=== PATIENT | male | born 1960 | race Caucasian/White ===

== ENCOUNTER 2018-02-25 01:59 | Outpatient (CLI) | payer BC, SELFPAY ==
[2018-02-25 09:52] LABS: ALT 42 U/L (12-78); AST 25 U/L (15-37); Alkaline Phosphatase 65 U/L (46-116); BUN 16 mg/dL (7-18); Bilirubin, Total 0.5 mg/dL (0.2-1.0); CREATININE 0.86 mg/dL (0.70-1.30); Calcium 9.1 mg/dL (8.5-10.1); Chloride 102 mmol/L (98-107); Cholesterol 205 mg/dL (50-200); Glucose 98 mg/dL (70-100); HDL Cholesterol 34 mg/dL (40-60); LDL CHOLESTEROL 83 mg/dL (<100); Potassium 4.2 mmol/L (3.5-5.1); Sodium 139 mmol/L (136-145); Total Protein 7.4 g/dL (6.4-8.2); Triglyceride 527 mg/dL (30-150)
[2018-02-25 10:04] LABS: Hemoglobin A1C 6.7 % (4.5-6.2)
== END 2018-02-25 02:19 ==
PROVIDERS: PCP Family Medicine; Visit Provider Family Medicine
DX: E11.39 Type 2 diabetes mellitus with other diabetic ophthalmic complication (principal)
CPT/HCPCS: 36415; 80053; 80061; 83721; 82043; 82570; 83036

== ENCOUNTER 2018-09-26 04:12 | Outpatient (CLI) | payer BC, SELFPAY ==
[2018-09-26 12:10] LABS: ALT 46 U/L (12-78); AST 28 U/L (15-37); Albumin 4.2 g/dL (3.4-5.0); Alkaline Phosphatase 56 U/L (46-116); Anion Gap 12.5 mmol/L (3-11); BUN 20 mg/dL (7-18); Bilirubin, Total 0.6 mg/dL (0.2-1.0); CO2 26.5 mmol/L (21.0-32.0); CREATININE 0.95 mg/dL (0.70-1.30); Calcium 9.5 mg/dL (8.5-10.1); Chloride 99 mmol/L (98-107); Cholesterol 232 mg/dL (50-200); Glucose 156 mg/dL (70-100); HDL Cholesterol 34 mg/dL (40-60); LDL CHOLESTEROL 113 mg/dL (<100); Potassium 4.4 mmol/L (3.5-5.1); Sodium 138 mmol/L (136-145); Total Protein 7.6 g/dL (6.4-8.2); Triglyceride 406 mg/dL (30-150)
[2018-09-26 12:13] LABS: Hemoglobin A1C 6.9 % (4.5-6.2)
== END 2018-09-26 04:32 ==
PROVIDERS: PCP Family Medicine; Visit Provider Family Medicine
DX: E11.9 Type 2 diabetes mellitus without complications (principal); E78.5 Hyperlipidemia, unspecified; I10 Essential (primary) hypertension
CPT/HCPCS: 36415; 80053; 80061; 83721; 83036

== ENCOUNTER 2019-04-14 09:03 | Outpatient (CLI) | payer BC, SELFPAY ==
[2019-04-14 11:11] LABS: Hemoglobin A1C 6.9 % (4.5-6.2)
[2019-04-14 11:15] LABS: Cholesterol 221 mg/dL (<200); HDL Cholesterol 28 mg/dL (40-60); Triglyceride 548 mg/dL (<150)
[2019-04-14 11:33] LABS: LDL CHOLESTEROL 71 mg/dL (<100)
== END 2019-04-14 09:23 ==
PROVIDERS: PCP Family Medicine; Visit Provider Family Medicine
DX: E11.9 Type 2 diabetes mellitus without complications (principal); E78.5 Hyperlipidemia, unspecified
CPT/HCPCS: 36415; 80061; 83721; 83036

== ENCOUNTER 2020-02-04 04:13 | Outpatient (CLI) | payer BC, SELFPAY ==
[2020-02-04 07:56] LABS: Hemoglobin A1C 6.7 % (<5.7)
[2020-02-04 18:18] LABS: PSA, Screening 0.6 ng/mL (0.0-4.5)
== END 2020-02-04 04:33 ==
PROVIDERS: PCP Family Medicine; Visit Provider Family Medicine
DX: Z00.00 Encounter for general adult medical examination without abnormal findings (principal); E11.9 Type 2 diabetes mellitus without complications; Z12.5 Encounter for screening for malignant neoplasm of prostate
CPT/HCPCS: 36415; 84153; 83036

== ENCOUNTER 2020-04-20 11:41 | Outpatient (CLI) | payer BC, SELFPAY ==
--- NOTE | 2020-04-20 06:45 | DI.RAD_ITS ---
EXAM: XR CERVICAL SPINE COMP 4-5V CLINICAL HISTORY: fall w/ loss of conciousness/neck pain,m54.2,cervicalgia. TECHNIQUE: 2D digital imaging was performed. COMPARISON: No exams were available for comparison FINDINGS: There is moderate narrowing of the C5-6 and C6-7 disc spaces. The remaining disc spaces are normally maintained. There are endplate osteophytes at these levels. Facet degenerative changes are also pr esent which are most prominent at C2-3 and C6-7. There is bilateral neural foraminal narrowing at C5 -6 and C6-7, greater on the right side. There is no prevertebral soft tissue swelling. The airway a ppears intact. SOFT TISSUE: Normal. The lung apices are clear. IMPRESSION: Degenerative changes, greatest at C5-6 and C6-7. DATA REPOSITORY: RADIATION DOSE DELIVERED:
== END 2020-04-20 12:01 ==
PROVIDERS: PCP Family Medicine; Visit Provider Family Medicine
DX: M54.2 Cervicalgia (principal); M50.322 Other cervical disc degeneration at C5-C6 level; M50.323 Other cervical disc degeneration at C6-C7 level
CPT/HCPCS: 72050

== ENCOUNTER 2020-08-23 11:01 | Outpatient (REF) | payer BC, SELFPAY ==
[2020-08-23 13:14] LABS: ALT 37 U/L (16-63); AST 20 U/L (15-37); Albumin 3.9 g/dL (3.4-5.0); Alkaline Phosphatase 57 U/L (46-116); Anion Gap 8.8 mmol/L (3-11); BUN 16 mg/dL (7-18); Bilirubin, Total 0.6 mg/dL (0.2-1.0); CO2 28.2 mmol/L (21.0-32.0); CREATININE 0.9 mg/dL (0.70-1.30); Calcium 9.6 mg/dL (8.5-10.1); Chloride 102 mmol/L (98-107); Glucose 146 mg/dL (74-106); Potassium 4.4 mmol/L (3.5-5.1); Sodium 139 mmol/L (136-145); Total Protein 7.1 g/dL (6.4-8.2)
[2020-08-23 13:30] LABS: COMMENT (LAB VIEW ONLY) 56.23 mg/dL; Microalb ug/mg Crea 21.5 ug/mg Cr
[2020-08-23 14:17] LABS: Hemoglobin A1C 6.6 % (<5.7)
== END 2020-08-23 11:02 | disposition home or self-care (01) ==
LOC: LBN 11:01
PROVIDERS: PCP Family Medicine; Visit Provider Family Medicine
DX: Z00.00 Encounter for general adult medical examination without abnormal findings (principal); E11.9 Type 2 diabetes mellitus without complications
CPT/HCPCS: 80053; 82043; 82570; 83036

== ENCOUNTER 2020-12-22 04:45 | Outpatient (CLI) | payer BC, SELFPAY ==
[2020-12-22 07:59] LABS: Hemoglobin A1C 6.7 % (<5.7)
== END 2020-12-22 04:46 | disposition home or self-care (01) ==
LOC: LBO 04:45
PROVIDERS: PCP Family Medicine; Visit Provider Family Medicine
DX: E11.9 Type 2 diabetes mellitus without complications (principal)
CPT/HCPCS: 36415; 83036

== ENCOUNTER 2021-05-30 02:09 | Outpatient (CLI) | payer BC, SELFPAY ==
[2021-05-30 10:17] LABS: ALT 35 U/L (16-63); AST 19 U/L (15-37); Alkaline Phosphatase 63 U/L (46-116); Anion Gap 10.4 mmol/L (3-11); BUN 18 mg/dL (7-18); Bilirubin, Total 0.4 mg/dL (0.2-1.0); CO2 27.6 mmol/L (21.0-32.0); CREATININE 0.9 mg/dL (0.70-1.30); Calcium 9.3 mg/dL (8.5-10.1); Chloride 100 mmol/L (98-107); Cholesterol 230 mg/dL (<200); Glucose 155 mg/dL (74-106); HDL Cholesterol 37 mg/dL (40-60); Potassium 4.2 mmol/L (3.5-5.1); Sodium 138 mmol/L (136-145); Total Protein 7.5 g/dL (6.4-8.2); Triglyceride 428 mg/dL (<150)
[2021-05-30 10:49] LABS: LDL CHOLESTEROL 85 mg/dL (<100)
[2021-05-30 17:56] LABS: PSA, Screening 0.5 ng/mL (0.0-4.5)
== END 2021-05-30 02:10 | disposition home or self-care (01) ==
LOC: LBO 02:10
PROVIDERS: PCP Family Medicine; Visit Provider Family Medicine
DX: Z00.00 Encounter for general adult medical examination without abnormal findings (principal); Z12.5 Encounter for screening for malignant neoplasm of prostate
CPT/HCPCS: 36415; 80053; 80061; 83721; 84153

== ENCOUNTER 2021-06-09 00:19 | Outpatient (CLI) | payer BC, SELFPAY ==
--- NOTE | 2021-06-09 07:30 | DI.MRI_ITS ---
Exam(s) MR CERVICAL SPINE WO EXAM: MR CERVICAL SPINE WO CLINICAL HISTORY: hand tremor and cervical radiculopthy C5-6,G95.9,M54.12,R25.1 TECHNIQUE: Multiplanar multisequence MRI of the cervical spine was performed without intravenous con trast. COMPARISON: MR MRI - CERVICAL SPINE WO CONT from 05/27/2008 CR XR CERVICAL SPINE COMP 4-5V from 04/20/2020 FINDINGS: BONES: Vertebral body heights are maintained. Alignment is normal. Bone marrow signal intensity is wi thin normal limits. CERVICAL CORD: Craniovertebral junction is unremarkable. The cervical cord is normal size and signal intensity. SOFT TISSUES: Unremarkable. C2-3: Minimal disc bulging and small endplate osteophytes. C3-4: Minimal disc bulging and small endplate osteophytes. C4-5: Minimal disc bulging and small endplate osteophytes. C5-6: Severe loss of disc height and broad-based disc osteophytes causing effacement of the CSF spac e and narrowing of the central canal. There is bilateral neural foraminal narrowing. C6-7: Moderate loss of disc height and broad-based disc osteophytes. Effacement of the CSF base and n arrowing of the AP dimension of the central canal. Bilateral neural foraminal narrowing. C7-T1: No disc herniation or bulge is identified. IMPRESSION: Degenerative disc changes at C5-6 and C6-7 causing bilateral neural foraminal narrowing as well as ce ntral canal stenosis. No focal disc herniation is seen at any level. DATA REPOSITORY:
== END 2021-06-09 00:39 ==
PROVIDERS: PCP Family Medicine; Visit Provider Family Medicine
DX: M54.12 Radiculopathy, cervical region (principal); R25.1 Tremor, unspecified; M50.322 Other cervical disc degeneration at C5-C6 level; M50.323 Other cervical disc degeneration at C6-C7 level
CPT/HCPCS: 72141

== ENCOUNTER 2021-09-01 08:48 | Outpatient (CLI) | payer BC, SELFPAY ==
--- NOTE | 2021-09-01 08:45 | RT.EKG_ITS ---
APPROVED REPORT Exam: Resting ECG Reason for Exam: Pre-op exam Patient Location: O HR:70 bpm ECG Measurements Heart Rate 70 AXIS NY 212 P 65 QRSd 85 QRS 34 QT 380 T 42 QTc 400 Conclusion Sinus rhythm...normal P axis, V-rate 60- 99 Atrial premature complexes...SV complexes w/ short R-R intvls Borderline prolonged NY interval...NY >212, V-rate 50- 90
== END 2021-09-01 08:49 | disposition home or self-care (01) ==
LOC: DI.CM 08:49
PROVIDERS: PCP Family Medicine; Visit Provider Family Medicine
DX: I25.10 Atherosclerotic heart disease of native coronary artery without angina pectoris (principal); I10 Essential (primary) hypertension; Z01.810 Encounter for preprocedural cardiovascular examination; Z01.818 Encounter for other preprocedural examination
CPT/HCPCS: 93010

== ENCOUNTER 2021-09-13 04:30 | Outpatient (CLI) | payer BC, SELFPAY ==
[2021-09-13 12:43] LABS: HCT 47.8 % (40.0-50.0); HGB 16.1 g/dL (13.5-17.5); MCH 31.1 pg (27.0-33.0); MCHC 33.7 % (32.0-36.0); MCV 92.5 fL (80-95); MPV 10.6 fL (8.0-11.0); Platelet Count 258 10^3/uL (130-400); RBC 5.17 10^6/uL (4.36-5.78); RDW 12.9 % (11.8-14.1); RDW-SD 43.8 fL; WBC 5.95 10^3/uL (4.4-10.8)
[2021-09-13 13:02] LABS: Hemoglobin A1C 6.6 % (<5.7)
[2021-09-13 13:13] LABS: ALT 43 U/L (16-63); AST 27 U/L (15-37); Albumin 4.3 g/dL (3.4-5.0); Alkaline Phosphatase 61 U/L (46-116); Anion Gap 8.1 mmol/L (3-11); BUN 15 mg/dL (7-18); Bilirubin, Total 0.6 mg/dL (0.2-1.0); CO2 26.9 mmol/L (21.0-32.0); CREATININE 0.9 mg/dL (0.70-1.30); Calcium 9.8 mg/dL (8.5-10.1); Chloride 103 mmol/L (98-107); Glucose 143 mg/dL (74-106); Potassium 5.1 mmol/L (3.5-5.1); Sodium 138 mmol/L (136-145); Total Protein 7.6 g/dL (6.4-8.2)
== END 2021-09-13 04:31 | disposition home or self-care (01) ==
LOC: LOS 04:30
PROVIDERS: Family Medicine; PCP Family Medicine; Visit Provider Family Medicine
DX: I10 Essential (primary) hypertension (principal); E11.9 Type 2 diabetes mellitus without complications; I25.10 Atherosclerotic heart disease of native coronary artery without angina pectoris
CPT/HCPCS: 36415; 80053; 85027; 83036

== ENCOUNTER → 2021-10-30 09:15 | Outpatient (CLI) | payer BC, SELFPAY ==
--- NOTE | 2021-10-30 | DI.RAD_ITS ---
Exam(s) XR CERVICAL SPINE 1V EXAM: XR CERVICAL SPINE 1V CLINICAL HISTORY: Cervical spin fusion Z98.1--Stenosis of spine M48.02. TECHNIQUE: 2D digital imaging was performed. Single lateral view. COMPARISON: CR XR CERVICAL SPINE COMP 4-5V from 04/20/2020 FINDINGS: Anterior fusion hardware is noted spanning C5 through C7. Disc spacer is are noted at these levels. The alignment normal. Remaining disc spaces are well maintained. There are facet degenerative fraga ges.. IMPRESSION: Status post lower cervical spine fusion. DATA REPOSITORY: RADIATION DOSE DELIVERED:
== END ==
PROVIDERS: PCP Family Medicine; Visit Provider Physician Assistant Surgical
DX: M48.02 Spinal stenosis, cervical region (principal); Z98.1 Arthrodesis status; M47.812 Spondylosis without myelopathy or radiculopathy, cervical region
CPT/HCPCS: 72020

== ENCOUNTER → 2021-12-28 00:20 | Outpatient (CLI) | payer BC, SELFPAY ==
--- NOTE | 2021-12-28 08:28 | DI.RAD_ITS ---
Exam(s) XR CERVICAL SPINE 1V EXAM: XR CERVICAL SPINE 1V CLINICAL HISTORY: S/P CERVICAL FUSION,Z98.1,CERVICAL STENOSIS,M48.02. TECHNIQUE: 2D digital imaging was performed. COMPARISON: CR XR CERVICAL SPINE 1V from 10/30/2021 FINDINGS: Single lateral view: Again noted is a previously described anterior fusion hardware at C5-6-7 levels with anterior fusion plate and disc spacer components at these levels. The appearance of the hardware is stable. Satisfactory position of the disc space devices remain sta ble with no migration of these components. Facet joints appear unchanged. Bridging anterior osteoph ytes are seen at C4-5 level, this being one level above the fusion, unchanged. This disc space as we ll as disc spaces above it continue to exhibit normal height. IMPRESSION: Stable satisfactory appearance. DATA REPOSITORY: RADIATION DOSE DELIVERED:
== END ==
PROVIDERS: PCP Family Medicine; Visit Provider Neurological Surgery
DX: M48.02 Spinal stenosis, cervical region (principal); Z98.1 Arthrodesis status
CPT/HCPCS: 72020

== ENCOUNTER 2022-06-05 03:04 | Outpatient (CLI) | payer BC, SELFPAY ==
[2022-06-05 13:04] LABS: COMMENT (LAB VIEW ONLY) 257.47 mg/dL
[2022-06-05 13:05] LABS: Microalb ug/mg Crea 41.8 ug/mg Cr
[2022-06-05 14:01] LABS: ALT 41 U/L (16-63); AST 33 U/L (15-37); Albumin 4.2 g/dL (3.4-5.0); Alkaline Phosphatase 56 U/L (46-116); Anion Gap 12.7 mmol/L (3-11); BUN 17 mg/dL (7-18); Bilirubin, Total 0.5 mg/dL (0.2-1.0); CO2 24.3 mmol/L (21.0-32.0); CREATININE 0.9 mg/dL (0.70-1.30); Calcium 9.4 mg/dL (8.5-10.1); Calculated LDL 104 mg/dL (<100); Chloride 102 mmol/L (98-107); Cholesterol 212 mg/dL (<200); Estimated GFR 95.97 (mL/min/1.73m2); Glucose 127 mg/dL (74-106); HDL Cholesterol 45 mg/dL (40-60); Sodium 139 mmol/L (136-145); Total Protein 7.8 g/dL (6.4-8.2); Triglyceride 319 mg/dL (<150)
[2022-06-05 18:50] LABS: PSA, Screening 0.5 ng/mL (<=4.5)
[2022-06-05 19:01] LABS: Estimated Average Glucose 134 mg/dL; Hemoglobin A1C 6.3 % (<5.7)
== END 2022-06-05 03:05 | disposition home or self-care (01) ==
LOC: LOS 03:04
PROVIDERS: PCP Family Medicine; Visit Provider Family Medicine
DX: Z00.00 Encounter for general adult medical examination without abnormal findings (principal); E11.9 Type 2 diabetes mellitus without complications
CPT/HCPCS: 36415; 80053; 80061; 84153; 82043; 82570; 83036

== ENCOUNTER 2022-12-21 02:24 | Outpatient (CLI) | payer BC, SELFPAY ==
[2022-12-21 12:52] LABS: Hemoglobin A1C 5.9 % (<5.7)
== END 2022-12-21 02:25 | disposition home or self-care (01) ==
LOC: LOS 02:24
PROVIDERS: PCP Family Medicine; Visit Provider Family Medicine
DX: E11.9 Type 2 diabetes mellitus without complications (principal)
CPT/HCPCS: 36415; 83036

== ENCOUNTER 2023-05-27 09:26 | Day surgery (SDC) | payer BC, SELFPAY ==
--- NOTE | 2023-05-26 18:55 | W.PM.DSUDISC ---
Date of service: 05/27/23 Time of Service: 11:45 Discharge Plan Disposition Patient Disposition: Home Condition: Good Discharge Details Reason For Visit: screening colonoscopy Attending Provider: Deandre Powers Primary Care Provider: Catherine Siddiqi Home Meds and New Rx's Prescriptions: Continued aspirin [Aspirin Low-Strength] 81 MG tablet,chewable 81 mg PO DAILY (DME) Blood Glucose Test 1 EACH strip 1 ea Miscellaneous DAILY Qty: 100 Rx Instructions: FOR covered METER. E11.9 (DME) lancets 1 EACH misc 1 ea Miscellaneous DAILY Qty: 100 Rx Instructions: FOR dispensed METER. E11.9 nitroglycerin [Nitrostat] 0.4 mg tablet, sublingual 0.4 mg Sublingual PRN MDD 3 Qty: 25 12RF glipizide 10 mg tablet extended release 24hr 10 mg PO DAILY Qty: 90 4RF losartan [Cozaar] 100 mg tablet 100 mg PO QAM Qty: 90 3RF hydrochlorothiazide 25 mg tablet 25 mg PO QAM Qty: 90 3RF diazepam 2 mg tablet 2 mg PO TID PRN (Reason: muscle spasm) Qty: 90 1RF metoprolol succinate [Toprol XL] 200 mg tablet extended release 24 hr 200 mg PO DAILY Qty: 90 4RF lorazepam 1 mg tablet 1 mg PO 1/2 H BEFORE FLIGHT Qty: 10 0RF metformin 1,000 mg tablet 1,000 mg PO DAILY Qty: 180 3RF Discontinued bisacodyl [Dulcolax (bisacodyl)] 5 mg tablet,delayed release (DR/EC) 5 mg PO ONCE Qty: 4 0RF Rx Instructions: Take per colonoscopy instructions provided by ordering providers office polyethylene glycol 3350 17 gram/dose powder 17 g PO ONCE Qty: 238 0RF Rx Instructions: Take per colonoscopy instructions provided by ordering providers office Discharge Instructions Instructions: Colorectal Polyps (GEN) Additional Instructions: Jason, we were able to complete your colonoscopy today without any issues. I did find a total of 5 polyps. I removed these all completely without any problems. It will take a week or 2 for me to get the results of the polyp report, but, at least to the naked eye, there were no worrisome features about them. Once I have the results of the polyp test, I will be in touch with my recommendations for your next colonoscopy. 1. If tolerated, consume a soft, low fiber diet for 1-2 days. 2[address] Do not drive, drink alcohol, operate machinery, make critical decisions, or do activities that require coordination or balance for 24 hours. 3. Because air was put into your colon during the procedure, expelling air from your rectum (passing gas or farting) is normal. 4. You may not have a bowel movement for 1-3 days because of the colonoscopy prep. This is normal. 5. Go directly to the emergency room if you notice any of the following: Develop chills (warm to touch), or if you have a thermometer and your temperature is above 101 Difficulty breathing or difficultly swallowing Persistent vomiting Severe abdominal pain, other than gas cramps Severe chest pain Black, tarry stools Any bleeding ? exceeding one tablespoon 6. Call your physician if the site where your intravenous was started becomes red, swollen, painful, and warm to touch. 7. Your physician has reviewed your pre-procedure medications. Please continue to take those medications as previously ordered. You will be given specific information/education regarding any changes to your medications before leaving. Activity:: Activity as Tolerated Diet:: As Tolerated Discharge Orders Discharge Orders: Discharge Order (Routine); Ordered 05/26/23 Ordered By: Deandre Powers DS: Diagnosis Discharge Diagnosis (1) Screening for colorectal cancer: Status: Acute Asessment and Plan: Follow-up on polypectomy results
--- NOTE | 2023-05-26 18:57 | W.COLOREPORT ---
Date of service: 05/27/23 Time of Service: 11:47 Colonoscopy Report Date of procedure: 05/27/23 Pre-op diagnosis general: screening colonoscopy Post-op diagnosis procedure note: other (Colon polyps) Procedure: colonoscopy with polypectomy Surgeon: Deandre Powers Anesthesia Type: General:No Airway Estimated blood loss (mL): 10 Pathology: other (0.25 cm rectal polyps x 2, 0.25 cm polyp at 50 cm, 0.25 cm polyps at 30 cm x 2) Complications: None Disposition: same day Indications: Jason is a 62 year old man who needs his next screening colonoscopy Prep: Miralax/Dulcolax Procedure Start Time: 11:17 Procedure End Time: 11:36 Retraction Time: 12 Findings: 0.25 cm rectal polyps x 2, 0.25 cm polyp at 50 cm, 0.25 cm polyps at 30 cm x 2 Procedure Description: After the induction of monitored anesthetic care, and with the patient in left lateral decubitus position, I began by performing an external anorectal exam.? Perineum and skin were normal, as was the anal verge.? There was no evidence of external hemorrhoids.? Next, I performed a digital rectal exam.? I did not appreciate any abnormal findings.? Next, I advanced a colonoscope into the rectal vault.? I performed retroflexion.? This appeared normal.? Using insufflation, I then advanced the colonoscope beyond the rectal folds and into the sigmoid colon before advancing towards the cecum.? The scope was noted to be in the cecum by identification of the ileocecal valve and appendiceal orifice.? I then began withdrawing the colonoscope using repeated irrigation as necessary for full evaluation of the colonic mucosa. Around 50 cm from the anal verge I identified a 0.25 cm flat cold forceps polypectomy polyp. ?It appeared in character. ?I was able to remove this with a . ?I examined the site, and there was minimal bleeding. ?Once this was completed, I continued to withdraw the scope and examine the remainder of the colonic mucosa.? I found 2 flat polyps at 30 cm. Both of these were about 0.25 cm, and both were removed with cold forceps without any significant bleeding. Once the scope was withdrawn to the level of the rectum, great care was taken to examine portions of the rectal folds.? In the upper portion of the rectal vault where another two 0.25 cm flat polyps. I removed these with cold forceps as well. Finally, the scope was withdrawn and the patient was brought to the same-day surgery recovery unit as the anesthetic wore off. ?The findings and instructions were shared with the patient prior to discharge. [place] Bowel Prep [place] Bowel Prep Right Colon: 2 Left Colon: 3 Transverse Colon: 3 Total Score: 8
[2023-05-27 10:27] VITALS: BP 137/86; PULSE 82; RESP 18; TEMP 36.4; O2SAT 97
--- NOTE | 2023-05-27 10:41 | W.ANESPRE ---
General Info Date of Service Date Performed: 05/27/23 Height: 5 ft 10 in Weight: 92.6 kg Body Mass Index (BMI): 29.2 Surgical Procedure: Operation Date: 05/27/23 11:20 Proposed Procedure Side Surgeon tyler Powers MD Meds Allergies and Home Medications Allergies Allergy/AdvReac Type Severity Reaction Status Date / Time Eahzyia-GFP-XcN Reductase AdvReac Intermediate Verified 05/27/23 10:22 Inhibitor [Sgukodp-Kvj-Wdy Reductase Inhibitor] amantadine AdvReac Verified 05/27/23 10:22 Home Medication Medication Instructions Recorded aspirin 81 mg chewable tablet 81 mg PO DAILY 07/31/12 (Aspirin Low-Strength) blood sugar diagnostic (Blood #100 strips 07/30/16 Glucose Test strips) lancets 28 gauge #100 ea 07/30/16 nitroglycerin 0.4 mg sublingual 0.4 mg sublingual PRN #25 tabs 06/29/20 tablet (Nitrostat) glipizide 10 mg tablet, extended 10 mg PO DAILY #90 tab-caps 06/09/22 release 24 hr losartan 100 mg tablet (Cozaar) 100 mg PO QAM #90 tabs 10/26/22 hydrochlorothiazide 25 mg tablet 25 mg PO QAM #90 tab-caps 01/18/23 diazepam 2 mg tablet 2 mg PO TID PRN muscle spasm #90 01/23/23 tabs metoprolol succinate 200 mg 200 mg PO DAILY #90 tab-caps 03/31/23 tablet,extended release 24 hr (Toprol XL) lorazepam 1 mg tablet 1 mg PO 1/2 H BEFORE FLIGHT #10 04/01/23 tabs metformin 1,000 mg tablet 1,000 mg PO DAILY #180 tab-caps 04/18/23 Current Visit Medications: Current Medications Generic Name Dose Route Start Last Admin Trade Name Freq PRN Reason Stop Dose Admin Hyoscyamine Sulfate 0.125 mg 05/26/23 18:59 Hyoscyamine 0.125 Mg Sl/Oral/Chew SL 06/25/23 18:58 DIRECTED PRN Ringer's Solution 1,000 mls @ 80 mls/hr 05/27/23 06:00 IV 05/27/23 23:59 INFUSION [facility] [place] IV Miscellaneous Supplies 1 each 05/27/23 06:00 Iv Access IV 01/08/24 23:59 DIRECTED RAJ Ondansetron HCl 4 mg 05/26/23 18:59 Ondansetron 4 Mg/2 Ml Vial IVP 06/25/23 18:58 Q4H PRN PRN Nausea / Vomiting Sodium Chloride 0 ml 05/27/23 06:00 Normal Saline Flush 10 Ml Syr IV 05/27/23 23:59 PRN PRN Sodium Chloride 0 ml 05/27/23 06:00 Normal Saline 10 Ml Vial IJ 05/27/23 23:59 DIRECTED PRN Sterile Water 0 ml 05/27/23 06:00 Water,Injection,Sterile 10 Ml Vial IJ 05/27/23 23:59 DIRECTED PRN PFSH Active Problems Active Problems: Problem Status Onset Code Essential tremor G25.0 Encounter for screening colonoscopy Z12.11 Fatigue R53.83 Annual physical exam Z00.00 Nicotine dependence F17.200 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 Cervical myelopathy G95.9 Cervical radiculopathy at C5 M54.12 COVID-19 determined by clinical diagnostic criteria U07.1 Type II diabetes mellitus 08/04/02 E11.9 Lumbago 04/18/01 M54.5 Hyperlipidemia 08/04/12 E78.5 Essential hypertension 02/20/13 I10 Depressive disorder F32.9 Coronary arteriosclerosis I25.10 Anxiety F41.9 Medical History Medical History Smoker quit 2001 Shoulder pain 04/18/04 XR neg Old myocardial infarction 03/20/11 Thoracic back pain 01/03/15 Surgical History Surgical History History of intravascular stent placement Stent placement (~2011) [facility] [place] Tobacco Smoking/Tobacco Use Status: Current-Occasional Tobacco Type: cigarettes Passive smoking exposure: Yes Second hand exposure: Yes Alcohol Alcohol Intake: current Alcohol intake frequency: a few times a week Alcohol type: hard liquor Substance Use Substance use: Occasionally Substance use type: marijuana Vital Signs and Lab Results Vital Signs Most Recent Vital Signs in EMR: Most Recent Vital Signs Temp Pulse Resp BP Pulse Ox 36.4 C L 82 18 137/86 97 05/27/23 10:27 05/27/23 10:27 05/27/23 10:27 05/27/23 10:27 05/27/23 10:27 Point of Care Results Point of Care Results: Finger Stick Blood Glucose 133 05/27/23 10:33 Lab Results Blood Type / Crossmatch: No Data to Display Complete Blood Count: No Data to Display Complete Metabolic Panel: No Data to Display Liver Function Panel: No Data to Display Coagulation Panel: No Data to Display Cardiac Panel: No Data to Display Arterial Blood Gas: No Data to Display Venous Blood Gas: No Data to Display Pancreas Panel: No Data to Display Thyroid Panel: No Data to Display Infectious Disease: No Data to Display Blood Cultures: No Data to Display Toxicology Panel: No Data to Display Anesthesia Assessment and Plan Anesthesia History Personal History: No History of Anesthesia Complications Family History: No Family History of Anesthesia Complications Exercise Tolerance Exercise Tolerance: Metabolic Equivalents>4 Pertinent Negatives Pertinent Negatives: No Symptoms of GERD and No Major Pulmonary Symptoms or Complaints Cardiac & Pulmonary Exam Cardiac Exam: Normal S1/S2 Heart Sounds Pulmonary Exam: Clear Bilateral Breath Sounds Implantable Cardiac Device Does patient have a Pacemaker or an ICD?: No Airway Exam Known Difficult Airway: No Mallampati Class: 2 Mouth Opening: Normal (> 3cm) Thyromental Distance: Greater than 3 cm Neck Range of Motion: Full ROM and History of Cervical Fusion Neck Circumference: Normal Teeth Condition: Normal Dentition ASA Classification ASA Score: ASA 3 Emergency Case?: No NPO Status NPO Status: NPO Clears >2 hours, Solids >8 hours Anesthesia Plan Resuscitation Status: Full Code Anesthesia Technique: General Anesthesia Airway Planned: Natural Airway Monitors Used: Standard Monitors
[2023-05-27 10:43] VITALS: BMI 29.2
[2023-05-27] MEDS: Lactated Ringers 1,000 ML 80 ML IV (10:54)
--- NOTE | 2023-05-27 11:20 | BOWEL_PTH ---
PATIENT: Everton Bliss LOC: [facility] U#:[id number] AGE/SX: 62/M ROOM: RE05/27/[address]: Deandre Powers MD : [id number] BED: DIS: 05/27/2023 SPEC #: [id number] RECD: 05/27/23 12:56 STATUS: JULITO RE #: [id number] MARIPOSA: 05/27/23 11:[address]: Deandre Powers DEPT: Surgical Specimen RECD BY: Claritza Webber ENTERED: 05/27/23 12:57 SP TYPE: Bowel OTHR DR: Catherine Siddiqi MD, DC Tissues: 1 - BIOPSY BOWEL 2 - BIOPSY BOWEL 3 - BIOPSY BOWEL Procedures: GROSS AND MICRO LEVEL 4 Comments: [id number]
[2023-05-27 11:44] VITALS: BP 118/83; PULSE 96; RESP 16; TEMP 36.6; O2SAT 96
--- NOTE | 2023-05-27 11:54 | W.ANESPOSTOP ---
Postoperative Evaluation Date, Time and Location Date Performed: 05/27/23 Time Performed: 11:54 Patient Location: Day Surgery Unit Vital Signs Most Recent Imported Vital Signs: Most Recent Vital Signs Temp Pulse Resp BP Pulse Ox 36.6 C 96 H 16 118/83 96 05/27/23 11:44 05/27/23 11:44 05/27/23 11:44 05/27/23 11:44 05/27/23 11:44 Pain Score Most Recent Pain Score: Most Recent Pain Score Pain Level 0 05/27/23 11:44 Assessment Mental Status: Awake (Alert & Oriented to Patient Baseline) Airway and Respiratory Function: Patent airway with normal (patient baseline) respiratory exam Cardiovascular Function: Hemodynamically Stable Hydration Status: Adequately Hydrated Nausea & Vomiting: No Nausea or Vomiting Pain: Pt. Denies Any Pain Peripheral Nerve Block: Patient did not receive a nerve block
[2023-05-27 11:58] VITALS: BP 130/102; PULSE 88; RESP 16; TEMP 36.6; O2SAT 99
[2023-05-27 12:24] VITALS: BP 147/92; PULSE 90; RESP 18; TEMP 36.6; O2SAT 98
== END 2023-05-27 12:26 | disposition home or self-care (01) ==
LOC: SUR 09:26
PROVIDERS: PCP Family Medicine; Visit Provider Surgery
PROC: 0DJD8ZZ Inspection of Lower Intestinal Tract, Via Natural or Artificial Opening Endoscopic (ICD-10-PCS; CPT 45378; principal; 2023-05-27 11:15)
DX: Z12.11 Encounter for screening for malignant neoplasm of colon (principal); D12.5 Benign neoplasm of sigmoid colon
CPT/HCPCS: 45380; 88305; J2704

== ENCOUNTER 2023-06-06 04:52 | Outpatient (CLI) | payer BC, SELFPAY ==
[2023-06-06 12:53] LABS: ALT 50 U/L (16-63); AST 27 U/L (15-37); Albumin 4.2 g/dL (3.4-5.0); Alkaline Phosphatase 47 U/L (46-116); Anion Gap 9.2 mmol/L (3-11); BUN 17 mg/dL (7-18); Bilirubin, Total 0.5 mg/dL (0.2-1.0); CO2 26.8 mmol/L (21.0-32.0); Calcium 9.7 mg/dL (8.5-10.1); Calculated LDL 112 mg/dL (<100); Chloride 103 mmol/L (98-107); Cholesterol 194 mg/dL (<200); Estimated GFR 84.05 (mL/min/1.73m2); Glucose 144 mg/dL (74-106); HDL Cholesterol 42 mg/dL (40-60); Sodium 139 mmol/L (136-145); Total Protein 7.8 g/dL (6.4-8.2); Triglyceride 203 mg/dL (<150)
[2023-06-06 12:56] LABS: COMMENT (LAB VIEW ONLY) 82.14 mg/dL; Microalb ug/mg Crea 20.6 ug/mg Cr
[2023-06-06 18:28] LABS: PSA, Screening 0.5 ng/mL (<=4.5)
== END 2023-06-06 04:53 | disposition home or self-care (01) ==
LOC: LOS 04:52
PROVIDERS: PCP Family Medicine; Visit Provider Family Medicine
DX: I10 Essential (primary) hypertension (principal); Z12.5 Encounter for screening for malignant neoplasm of prostate; E11.9 Type 2 diabetes mellitus without complications
CPT/HCPCS: 36415; 80053; 80061; 84153; 82043; 82570

== ENCOUNTER → 2023-10-30 10:05 | Outpatient (BNVA) | payer OTHER, SELFPAY | PROVIDERS: PCP Family Medicine; Referring Provider Family Medicine; Visit Provider Psychiatry & Neurology Neurology | DX: G25.0 Essential tremor (principal); R53.83 Other fatigue | CPT/HCPCS: 99213 ==

== ENCOUNTER 2024-01-14 01:25 | Outpatient (CLI) | payer OTHER, SELFPAY ==
--- NOTE | 2024-01-14 10:12 | DI.RAD_ITS ---
Exam(s) XR HAND RT COMPLETE EXAM: XR HAND RT COMPLETE CLINICAL HISTORY: log rolled on hand,pain,trauma,[id number]. TECHNIQUE: 2D digital imaging was performed. COMPARISON: No exams were available for comparison FINDINGS: 3 views No evidence of acute fracture nor dislocation. Bone density normal. No osseous lesions nor erosions . Incidentally noted is a 1 millimeter radiopaque foreign body in the volar soft tissues over the me dial aspect of the proximal wrist. No carpal row bone fractures evident. There are some degenerativ e changes evident in the metacarpophalangeal joint of the 3rd finger. No erosions at this level. IMPRESSION: No fractures evident. Tiny radiopaque foreign body noted in the volar soft tissues at the level of the distal ulna. DATA REPOSITORY: RADIATION DOSE DELIVERED:
== END 2024-01-14 01:45 ==
LOC: DI 01:25
PROVIDERS: PCP Family Medicine; Visit Provider Family Medicine
DX: W20.8XXA Other cause of strike by thrown, projected or falling object, initial encounter; S60.221A Contusion of right hand, initial encounter; M79.641 Pain in right hand
CPT/HCPCS: 73130

== ENCOUNTER 2024-01-22 16:30 | Outpatient (CLI) | payer OTHER, SELFPAY ==
--- NOTE | 2024-01-22 16:30 | RT.EKG_ITS ---
APPROVED REPORT Exam: Resting ECG Reason for Exam: chest pain Patient Location: O HR:75 bpm ECG Measurements Heart Rate 75 AXIS ND 208 P 67 QRSd 94 QRS 30 QT 387 T 42 QTc 433 Conclusion Sinus rhythm...normal P axis, V-rate 50- 99 Normal Electrocardiogram
== END 2024-01-22 16:31 | disposition home or self-care (01) ==
LOC: DI.CM 16:31
PROVIDERS: PCP Family Medicine; Visit Provider Family Medicine
DX: R07.9 Chest pain, unspecified (principal)
CPT/HCPCS: 93010

== ENCOUNTER 2024-03-29 11:18 | Emergency (ER) | payer OTHER, SELFPAY ==
[2024-03-29 11:36] VITALS: BP 119/75; PULSE 82; RESP 20; TEMP 36.8; O2SAT 97
--- NOTE | 2024-03-29 11:45 | DI.CT_ITS ---
Exam(s) CT ABDOMEN PELVIS W EXAM: CT ABDOMEN PELVIS W CLINICAL HISTORY: Left inguinal pain TECHNIQUE: Imaging Protocol: Axial computed tomography images with coronal and sagittal reformatted images were created and reviewed. CONTRAST MATERIAL: Intravenous: Omnipaque 350 contrast volume:85 mL Oral: No COMPARISON: CT CT CHEST LUNG CANCER SCREEN from 07/03/2022 FINDINGS: ABDOMEN: Lung Bases: 3 vessel coronary artery calcification is present. Liver: Normal density. No measurable mass. Portal, Superior Mesenteric, and Splenic Veins: Unremarkable. Gallbladder and Biliary Tract: No radiodense calculus or dilation. Pancreas: Normal density. No inflammatory process is seen. Calcifications are seen throughout the p ancreas which may reflect history of pancreatitis. Spleen: Normal. Adrenals: No masses seen. Kidneys: Normal size, contour and axis. There is a 6 mm stone at the left UPJ with out significant hy dronephrosis. There is a 1.5 cm hypodense mass in the superior pole of the right kidney. It does no t meet the criteria of a simple cyst. (Series 10, image 82). Abdominal Aorta: Abdominal portion non-dilated. Atherosclerotic calcification is present. Bowel: No obstruction or bowel wall thickening. Appendix is unremarkable. Peritoneal Cavity: No ascites, collection or mesenteric inflammatory response. No free air. Lymph Nodes: Within normal limits. Bones: Within normal limits for the patient's age. Soft Tissues: Fat containing inguinal hernias are present. There is a small fat containing umbilical hernia. PELVIS: Bladder: Symmetric distention, no gross wall thickening. Reproductive Organs: Unremarkable as visualized. Lymph Nodes: Within normal limits. Bones: Within normal limits for the patient's age. IMPRESSION: 1. 6 mm left UPJ stone without significant hydronephrosis. 2. 1.5 cm hypodense lesion in the right kidney. It does not meet the criteria for simple cyst. A ne oplasm cannot be excluded. Further evaluation with an MRI of the abdomen without and with contrast i s recommended. Unexpected findings RADIATION DOSE DELIVERED: 559.14mGy.cm Total DLP DATA REPOSITORY: All CT scans at this facility are submitted to the National Radiology Data Registry (NRDR) Dose Index Registry (DIR) with the [employer] (ACR). RADIATION OPTIMIZATION: All CT scans at this facility use at least one of these dose optimization te chniques: automated exposure control; mA and/or kV adjustment per patient size (includes targeted exa ms where dose is matched to clinical indication); or iterative reconstruction.
--- NOTE | 2024-03-29 11:57 | ED.GENADUL_ITS ---
Discharge Plan Disposition Patient Disposition: Home Discharge Details Clinical Impression: Mass of right kidney, Ureterolithiasis, Kidney stone on left side, Left inguinal pain Primary Care Provider: Catherine Siddiqi ED Provider: Sabino Cervantes Home Meds and New Rx's Prescriptions: Continued aspirin [Aspirin Low-Strength] 81 MG tablet,chewable 81 mg PO DAILY (DME) Blood Glucose Test 1 EACH strip 1 ea Miscellaneous DAILY Qty: 100 Rx Instructions: FOR covered METER. E11.9 (DME) lancets 1 EACH misc 1 ea Miscellaneous DAILY Qty: 100 Rx Instructions: FOR dispensed METER. E11.9 nitroglycerin [Nitrostat] 0.4 mg tablet, sublingual 0.4 mg Sublingual PRN MDD 3 Qty: 25 12RF metoprolol succinate [Toprol XL] 200 mg tablet extended release 24 hr 200 mg PO DAILY Qty: 90 4RF metformin 1,000 mg tablet 1,000 mg PO DAILY Qty: 180 3RF glipizide 10 mg tablet extended release 24hr 10 mg PO DAILY Qty: 90 4RF losartan [Cozaar] 100 mg tablet 100 mg PO QAM Qty: 90 3RF hydrochlorothiazide 25 mg tablet 25 mg PO QAM Qty: 90 3RF Discharge Instructions Additional Instructions: You were seen in the emergency department for your left inguinal pain. As we discussed please return to the emergency department if you develop worsening pain any rash in your groin any fevers nausea vomiting or abdominal pain. Your CAT scan showed that you have a small left kidney stone without signs of urine backing up. This is not likely related to your symptoms however if you develop worsening left flank pain please return to the emergency department. You are also found to have a mass in your right kidney for which radiology recommended an MRI of your abdomen with and without contrast. This recommendation has been pass along to your primary care team. For your pain please take medications as follows: 1. Take acetaminophen (Tylenol), 1,000 mg (two 500 mg tabs) every 6 hours [2. Take ibuprofen (Advil), 200 mg every 6 hours.] Stand Alone Forms: Physical Therapy Referral, Work Release Discharge Data Discharge Date/Time-TO BE ENTERED AT DEPARTURE: 03/29/24 14:30 HPI General Date/Time Provider Initiated Documentation: 03/29/24 11:28 . HPI Narrative: MDM This is an overall very well-appearing normothermic and not tachycardic 63-year-old male with left inguinal pain concerning for the possibility of hernia versus pathological fracture based on age versus other musculoskeletal etiology for which patient will undergo CT abdomen pelvis with IV contrast. No pain out of proportion to suggest necrotizing soft tissue infection nor Aden's gangrene. Soft nontender abdomen so I am not suspicious for intra- abdominal process such as appendicitis or diverticulitis. Patient does have a remote prior history of left inguinal lymph node biopsy in the setting of cat scratch fever. As such, it certainly could be possible that this he has an abnormal persistent lymph nodes or malignancy. No rash to left hip to suggest zoster. No flank pain nor history of nephrolithiasis to suggest increased risk for ureterolithiasis. No dysuria nor frequency to suggest UTI. No testicular pain to suggest torsion. Left lower extremity warm well-perfused so I am not concerned for critical limb ischemia so I did not feel that the patient required a CT angiogram of his aorta with runoffs. No history of recent immobilization nor prior DVTs so I was not suspicious for DVT so I do not feel the patient required a D-dimer nor a left lower extremity duplex study. No fevers nor limitations in range of motion of left hip so I am not suspicious for septic arthritis. No erythema to suggest septic cellulitis. No fluctuance to suggest abscess. Certainly could be possible that the patient has osteoarthritis. No fevers to suggest osteomyelitis. Will reassess following labs and imaging. 1:[address] scan showed a left UPJ stone without hydronephrosis. Given the stones location and the patient's lack of flank pain my suspicion is low that this is the cause of his symptoms. Furthermore he had no hydronephrosis which can often be a source of pain in the setting of ureterolithiasis. Will obtain urinalysis to ensure that she does not have signs of infection. He was also found to have a right renal mass about which I told him. Radiology recommended an MRI with and without contrast. Will treat pain with acetaminophen and ibuprofen. I have asked health party plan sales unit advisor Larissa at the patient seen next week by his primary care provider and asked them to obtain an MRI. Patient I discussed that he should return to the emergency department if he developed nausea vomiting fevers or abdominal pain. I will send him for a referral with physical therapy. He may also benefit from an MRI of his left hip if his symptoms do not improve with conservative management and physical therapy. I will provide him a work note so that he can rest. Patient understood his return indications and he was discharged with an empiric trial of expectant outpatient management. 1:50 PM Reassuring basic metabolic panel with no CORINNE. Mild hyperglycemia but no anion gap and normal bicarbonate?test not consistent with DKA. CBC lacks anemia thrombocytopenia and leukocytosis. Urinalysis nitrite negative hematuria negative not consistent with UTI. HPI This is a 63-year-old male arrived to the emergency department via private vehicle in the setting of left inguinal pain for the past approximately 2 weeks. Patient has no history of DVTs nor PEs. 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 He reportedly is in and out of his car during the day delivering 70-80 packages. He reports his left ankle pain is worse with walking. He denies nausea vomiting fevers abdominal pain testicular pain dysuria and frequency. He has not taken any recent falls. He reports that he had a left inguinal lymph node biopsy multiple decades ago found to be the result of cat scratch fever. No diarrhea. Exam General: Well-appearing in no acute distress speaking in complete sentences. Head: Normocephalic, atraumatic. Eye: Extraocular eye movements intact. No conjunctival injection. No scleral icterus. Ear, nose, mouth, throat: Grossly normal inspection. Normal voice, handling secretions normally. Neck: Trachea midline. Cardiovascular: Well-perfused distal extremities. Respiratory: Nonlabored respiration. Gastrointestinal: Nondistended abdomen. Soft. Nontender. No rebound. No guarding. : No inguinal hernias. Uncircumcised penis. No erythema. No fluctuance. Musculoskeletal: No edema. Moving all 4 extremities spontaneously. Left inguinal crease mild tenderness. No rash. No erythema. No fluctuance. Full range of motion left hip. Left foot warm well-perfused 2+ left PT and DP pulses. No palpable cords left lower extremity. Skin: Normal for age and race, grossly normal temperature and turgor. No acute rash. Neurologic: Alert and appropriate, no apparent acute deficits. Psychiatric: Mood and manner are appropriate. Grooming and personal hygiene are appropriate. Related Data Home Medications ?Medication ?Instructions ?Recorded ?Confirmed aspirin 81 mg chewable tablet 81 mg PO DAILY 07/31/12 03/29/24 (Aspirin Low-Strength) blood sugar diagnostic (Blood #100 strips 07/30/16 03/29/24 Glucose Test strips) lancets 28 gauge #100 ea 07/30/16 03/29/24 nitroglycerin 0.4 mg sublingual 0.4 mg sublingual PRN #25 tabs 06/29/20 03/29/24 tablet (Nitrostat) metoprolol succinate 200 mg 200 mg PO DAILY #90 tab-caps 03/31/23 03/29/24 tablet,extended release 24 hr (Toprol XL) metformin 1,000 mg tablet 1,000 mg PO DAILY #180 tab-caps 04/18/23 03/29/24 glipizide 10 mg tablet, extended 10 mg PO DAILY #90 tab-caps 09/10/23 03/29/24 release 24 hr losartan 100 mg tablet (Cozaar) 100 mg PO QAM #90 tabs 09/10/23 03/29/24 hydrochlorothiazide 25 mg tablet 25 mg PO QAM #90 tab-caps 01/09/24 03/29/24 Previous Rx's ?Medication ?Instructions ?Recorded nitroglycerin 0.4 mg sublingual 0.4 mg sublingual PRN #25 tabs 06/29/20 tablet (Nitrostat) metoprolol succinate 200 mg 200 mg PO DAILY #90 tab-caps 03/31/23 tablet,extended release 24 hr (Toprol XL) metformin 1,000 mg tablet 1,000 mg PO DAILY #180 tab-caps 04/18/23 glipizide 10 mg tablet, extended 10 mg PO DAILY #90 tab-caps 09/10/23 release 24 hr losartan 100 mg tablet (Cozaar) 100 mg PO QAM #90 tabs 09/10/23 hydrochlorothiazide 25 mg tablet 25 mg PO QAM #90 tab-caps 01/09/24 Allergies Allergy/AdvReac Type Severity Reaction Status Date / Time [id number] Reductase AdvReac Intermediate muscle Verified 03/29/24 12:17 Inhibitor (Ffhbrcg-Mbh-Lst aches Reductase Inhibitor) amantadine AdvReac Violent Verified 03/29/24 12:17 dreams General Stated Complaint: Male Reproductive Problem JONATHAN: 3 Course Vital Signs Vital signs: Vital Signs Temperature 36.8 C 03/29/24 11:36 Pulse 82 03/29/24 11:36 Respiratory Rate 20 03/29/24 11:36 Blood Pressure 119/75 11/10/24 11:36 Pulse Oximetry 97 03/29/24 11:36 Temperature 36.8 C 03/29/24 11:36 Temperature Source Tympanic 03/29/24 11:36 Pulse 82 03/29/24 11:36 Respiratory Rate 20 03/29/24 11:36 Respiratory Effort Normal 03/29/24 11:39 Blood Pressure 119/75 03/29/24 11:36 Blood Pressure Position Sitting 03/29/24 11:36 Pulse Oximetry 97 03/29/24 11:36 Oxygen Delivery Method Room Air 03/29/24 11:36 Oxygen Flow Rate 0 03/29/24 11:36 Pain Level 0 03/29/24 11:36 Medical Decision Making Quality:SDOH Health Related Social Needs: No Data to Display PFSH All Active Problems (Updated 03/29/24 @ 13:47 by Sabino Cervantes MD) Left inguinal pain (Acute) Kidney stone on left side (Acute) Ureterolithiasis (Acute) Mass of right kidney (Acute) Trauma (Acute) Essential tremor (Acute) Fatigue (Acute) Nicotine dependence (Acute) 08/2021-about 1/ ppd, about 10-15 yr hx Parkinsonian features (Acute) 08/2021-diagnosed with probable Parkinson, followed by neurology [facility] Cervical myelopathy (Acute) Cervical radiculopathy at C5 (Acute) Type II diabetes mellitus (Chronic 08/04/02) Nonproliferative diabetic retinopathy 362.03 04/14/2014 Lumbago (Chronic 04/18/01) MRI L5? herniation; repeat MRI 03/21-L5-S1 decreased disc space; Left midline herniation 03/04/15-no show for DI Hyperlipidemia (Chronic 08/04/12) Does not tolerate statins Essential hypertension (Chronic 02/20/13) Depressive disorder (Chronic) Coronary arteriosclerosis (Chronic) Status post [id number], STENT PLACED 2011, treated at [facility] Anxiety (Chronic) Medical History Hyperplastic polyp of large intestine Tubular adenoma of colon Smoker quit 2001 Shoulder pain 04/18/04 XR neg Old myocardial infarction 03/20/11 Thoracic back pain 01/03/15 Surgical History History of colonoscopy (~05/2023) hyperplastic polyp Tubular adenoma path sent History of intravascular stent placement Stent placement (~2011) [facility] [place] Family History Mother No problems noted. Father , 56 No problems noted. 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 Pets and animals: No Sexually active: Yes Do you think of yourself as: straight/heterosexual Current gender identity: male What is your relationship status?: How often do you talk on the phone with friends or family?: three or more times per week How often do you get together with friends or relatives?: three or more times per week How often do you attend mosque or taoism services?: decline to answer Do you belong to any clubs or organized social groups?: no Panel score (0-1 are the most socially isolated patients): 2 What type of physical activity do you participate in: walking Duration: > 90 minutes/day Frequency: daily Rachel/Latter Day: Pentecostal Seatbelt use: sometimes Drive intox or ride w/intox local truck driver: No Do you feel safe at home: Yes Do you feel safe in your relationship?: Yes Victim of physical abuse: No Victim of emotional abuse: No Victim of sexual abuse: No Would you like helpful sources: No PAWSS Have you Been Recently Intoxicated or Drunk Within the Last 30 days?: Yes Have you Ever Experienced Previous Episodes of Alcohol Withdrawal?: No Have you ever Experienced Withdrawal Seizures?: No Have you ever Experienced Delirium Tremens(DT)s?: No Have you ever undergone Alcohol Rehabilitation Treatment (i.e, inpt ot outpatient treatment programs)?: No Have you ever Experienced Blackouts?: No Have you ever Combined Alcohol with other Downers within the last 90 days?: No Have you ever Combined Alcohol with any other Substance of Abuse during the last 90 days?: No Positive Blood Alcohol level on Presentation? [PCS.BAL]: No Evidence of Increased Autonomic Activity (i.e. HR>120, tremor, sweating, a gitation, nausea)?: No Result: 1
[2024-03-29 12:11] LABS: Abs Immature Grans 0.02 10^3/uL (0.0-0.06); Absolute Basophil Count 0.05 10^3/uL (0.0-0.2); Absolute Eosinophil Count 0.09 10^3/uL (0.0-0.7); Absolute Lymphocyte Count 2.42 10^3/uL (1.2-3.4); Absolute Monocyte Count 0.51 10^3/uL (0.1-0.8); Absolute Neutrophil Count 3.55 10^3/uL (1.2-6.7); Basophils % 0.8 %; Eosinophils % 1.4 %; HCT 45.7 % (40.0-50.0); Immature Grans % 0.3 %; Lymphocytes % 36.4 %; MCH 32.5 pg (27.0-33.0); MCV 93 fL (80-95); MPV 8.9 fL (8.0-11.0); Monocytes % 7.7 %; Neutrophils % 53.4 %; Platelet Count 277 10^3/uL (130-400); RBC 4.93 10^6/uL (4.36-5.78); RDW 12.1 % (11.8-14.1); RDW-SD 41.8 fL; WBC 6.64 10^3/uL (4.4-10.8)
[2024-03-29] MEDS: Normal Saline - Diluent 50 ML VIAL IJ (12:13)
[2024-03-29] MEDS: Omnipaque 350 MG/ML 100 ML BTL IJ (12:13)
[2024-03-29 12:25] LABS: Anion Gap 10.1 mmol/L (3-11); BUN 17 mg/dL (7-18); CO2 27.9 mmol/L (21.0-32.0); Calcium 9.5 mg/dL (8.5-10.1); Chloride 104 mmol/L (98-107); Estimated GFR 83.52 (mL/min/1.73m2); Glucose 122 mg/dL (74-106); Potassium 4.3 mmol/L (3.5-5.1); Sodium 142 mmol/L (136-145)
[2024-03-29] MEDS: Ibuprofen 600 MG TAB PO (13:53)
[2024-03-29] MEDS: Acetaminophen 500 MG TAB 1000 MG PO (13:53)
[2024-03-29 13:55] VITALS: BP 139/81; PULSE 70; RESP 18; TEMP 36.1; O2SAT 97
[2024-03-29 14:11] LABS: Bilirubin Negative (Negative); Blood Negative (Negative); Clarity Clear (Clear); Glucose Negative (Negative); Ketones Negative (Negative); Leukocyte Esterase Negative (Negative); Nitrite Negative (Negative); Specific Gravity 1.025 (1.005-1.025); Urobilinogen 0.2 mg/dL (Up to 0.2); pH 5.5 (5-8)
[2024-03-29 14:24] VITALS: BP 142/84; PULSE 72; RESP 14; O2SAT 97
== END 2024-03-29 14:30 | disposition home or self-care (01) ==
PROVIDERS: Emergency Provider Emergency Medicine; PCP Family Medicine
DX: N20.1 Calculus of ureter (principal); R10.32 Left lower quadrant pain; I25.2 Old myocardial infarction; I10 Essential (primary) hypertension; E11.9 Type 2 diabetes mellitus without complications; F17.210 Nicotine dependence, cigarettes, uncomplicated; Z79.82 Long term (current) use of aspirin; Z79.84 Long term (current) use of oral hypoglycemic drugs; Z95.5 Presence of coronary angioplasty implant and graft
CPT/HCPCS: 80048; 99285; 74177; 81003; 85025; 99284; J3490

== ENCOUNTER 2024-04-23 01:37 | Outpatient (CLI) | payer OTHER, SELFPAY ==
--- NOTE | 2024-04-23 07:30 | DI.MRI_ITS ---
Exam(s) MR ABDOMEN WO/W EXAM: MR ABDOMEN WO/W CLINICAL HISTORY: mass right kidney,n28.89 TECHNIQUE: Multiplanar multisequence MRI of the Abdomen was performed. CONTRAST MATERIAL: IV Contrast: 19 mL of Dotarem contrast administered. COMPARISON: CT CT CHEST LUNG CANCER SCREEN from 07/03/[address] ABDOMEN PELVIS W from 03/29/2024 FINDINGS: Lung bases: Unremarkable. Liver: Unremarkable. Pancreas: Unremarkable. Gallbladder and Bile Ducts: Unremarkable. Adrenals: Unremarkable. Kidneys: 17 millimeter diameter mass noted at the superior pole of the right kidney as seen on recent CT. The borders appear circumscribed. It shows heterogeneous of high T2 signal on the precontrast images and enhancement postcontrast. Findings are suspicious for neoplasm. Spleen: Unremarkable. Aorta: Unremarkable. Soft Tissues: Unremarkable. Bone: Unremarkable. Lymph Nodes: Unremarkable. Stomach and bowel: Unremarkable. Peritoneal cavity: Unremarkable. No evidence of ascites. IMPRESSION: 17 millimeter mass upper pole right kidney suspicious for neoplasm. DATA REPOSITORY:
[2024-04-23] MEDS: Normal Saline - Diluent 50 ML VIAL IJ (10:35)
[2024-04-23] MEDS: Gadoterate meglumine 20 ML VIAL IVP (10:38)
== END 2024-04-23 01:57 ==
LOC: DI 01:38
PROVIDERS: PCP Family Medicine; Visit Provider Family Medicine
DX: N28.89 Other specified disorders of kidney and ureter (principal)
CPT/HCPCS: 74183

== ENCOUNTER 2024-04-27 02:55 | Outpatient (CLI) | payer OTHER, SELFPAY ==
[2024-04-27 12:35] LABS: ALT 28 U/L (16-63); AST 22 U/L (15-37); Albumin 3.6 g/dL (3.4-5.0); Alkaline Phosphatase 85 U/L (46-116); Anion Gap 9.1 mmol/L (3-11); BUN 17 mg/dL (7-18); Bilirubin, Total 0.58 mg/dL (0.2-1.0); CO2 27.9 mmol/L (21.0-32.0); CREATININE 0.9 mg/dL (0.70-1.30); Calcium 9.4 mg/dL (8.5-10.1); Calculated LDL 116 mg/dL (<100); Chloride 104 mmol/L (98-107); Cholesterol 182 mg/dL (<200); Estimated GFR 94.78 (mL/min/1.73m2); Glucose 138 mg/dL (74-106); HDL Cholesterol 46 mg/dL (40-60); Potassium 4.2 mmol/L (3.5-5.1); Sodium 141 mmol/L (136-145); Total Protein 7.7 g/dL (6.4-8.2); Triglyceride 104 mg/dL (<150)
[2024-04-27 13:03] LABS: Vitamin B12 408 pg/mL (193-986)
[2024-04-27 14:26] LABS: Hemoglobin A1C 6.1 % (<5.7)
== END 2024-04-27 02:56 | disposition home or self-care (01) ==
LOC: LOS 02:55
PROVIDERS: PCP Family Medicine; Visit Provider Family Medicine
DX: E11.9 Type 2 diabetes mellitus without complications (principal); I10 Essential (primary) hypertension; E53.8 Deficiency of other specified B group vitamins
CPT/HCPCS: 36415; 80053; 80061; 82607; 83036

== ENCOUNTER → 2024-06-23 11:05 | Outpatient (BNVA) | payer MEDICARE, SELFPAY | PROVIDERS: PCP Family Medicine; Referring Provider Family Medicine; Visit Provider Psychiatry & Neurology Neurology | DX: G25.0 Essential tremor (principal); R53.83 Other fatigue | CPT/HCPCS: 99214 ==

== ENCOUNTER 2024-07-02 10:46 | Outpatient (REF) | payer MEDICARE, SELFPAY ==
[2024-07-02 15:12] LABS: COMMENT (LAB VIEW ONLY) 243.52 mg/dL; Microalb ug/mg Crea 14.8 ug/mg Cr
== END 2024-07-02 10:47 | disposition home or self-care (01) ==
LOC: LBN 10:46
PROVIDERS: PCP Family Medicine; Visit Provider Family Medicine
DX: E11.9 Type 2 diabetes mellitus without complications (principal); M25.512 Pain in left shoulder; F17.200 Nicotine dependence, unspecified, uncomplicated; F17.210 Nicotine dependence, cigarettes, uncomplicated; Z11.59 Encounter for screening for other viral diseases; I10 Essential (primary) hypertension; Z13.6 Encounter for screening for cardiovascular disorders; E11.39 Type 2 diabetes mellitus with other diabetic ophthalmic complication
CPT/HCPCS: 82043; 82570

== ENCOUNTER 2024-07-06 01:03 | Outpatient (CLI) | payer MEDICARE, SELFPAY ==
--- NOTE | 2024-07-06 06:30 | DI.US_ITS ---
Exam(s) US AAA SCREENING EXAM: US AAA SCREENING CLINICAL HISTORY: SCREENING FOR AAA, CIGARETTE SMOKER, z13.7 COMPARISON: CT CT ABDOMEN PELVIS W from 03/29/2024 FINDINGS: Abdominal Aorta: Proximal: 2.2 x 2.3 cm Mid: 1.9 x 1.8 cm Distal: 1.4 x 1.7 cm Iliac's: Right: 1.3 x 1.2 cm Left: 1.1 x 1.0 cm Atherosclerotic calcification is present. IMPRESSION: No evidence of abdominal aortic aneurysm. DATA REPOSITORY:
--- NOTE | 2024-07-06 06:30 | DI.RAD_ITS ---
Exam(s) XR SHOULDER LT COMPLETE 2+V EXAM: XR SHOULDER LT COMPLETE 2+V CLINICAL HISTORY: shoulder pain,LT,M25.512. TECHNIQUE: 2D digital imaging was performed of the left shoulder. Five images were obtained. AP, G rashey, Y-view and axillary views were obtained. COMPARISON: No exams were available for comparison FINDINGS: BONES: No acute fracture is present. No bony destructive lesion is seen. JOINTS: No dislocation present. There are degenerative changes seen at the acromioclavicular joint. The glenohumeral joint appears well maintained. There are findings of an anterior cervical disc fusi on. SOFT TISSUE: There calcifications in the soft tissues adjacent to the humeral head suggestive of calc ific tendinitis. IMPRESSION: Degenerative changes of the acromioclavicular joint. No acute abnormality. DATA REPOSITORY: RADIATION DOSE DELIVERED:
--- NOTE | 2024-07-06 06:30 | DI.CTLCSR_ITS ---
Exam(s) CT CHEST LUNG CANCER SCREEN EXAM: CT CHEST LUNG CANCER SCREEN CLINICAL HISTORY: Screening for lung cancer,CIGARETTE SMOKER, f17.210 TECHNIQUE: Imaging Protocol: Axial computed tomography images with coronal and sagittal reformatted images were created and reviewed. Lung Computer Aided Detection (CAD) was utilized. COMPARISON: CT CT CHEST LUNG CANCER SCREEN from 07/03/2022 FINDINGS: Tracheobronchial tree: Patent where visualized. No bronchiectasis. Pulmonary parenchyma: No consolidation or dominant measurable mass. No architectural distortion. Lung Nodules: There is a 2 mm new nodule in the superior segment of the left lower lobe. (Series 2, image 52). Mediastinum and Anastasia: No dominant adenopathy or fluid collection. The esophagus is unremarkable. Thyroid gland: Unremarkable. Lymph nodes: Unremarkable. Pleura: No effusion or pneumothorax. Heart: The heart is not dilated. Three vessel coronary artery calcification is present. No pericardi al effusion. Aorta: Thoracic aorta non-dilated.Atherosclerotic calcification is present. Upper abdomen: Unremarkable. Soft Tissues: Unremarkable. Bones: Within normal limits. The inferior aspect of the patient's anterior cervical disc fusion is no kurt. IMPRESSION: 2 mm left lower lobe pulmonary nodule. Lung RADS Cat 2 - Benign Appearance / Behavior: Nodules with a very low likelihood of becoming a clin ically active cancer due to size or lack of growth Lung-RADS 1.0 CATEGORIES: Category 0 - Prior chest CT exam(s) being located for comparison. Category 1 - Annual screening in 12 months. No nodules or definitely benign nodules. Category 2 - Annual screening in 12 months. Benign appearance. Nodules with low likelihood of becomin g active cancer. Category 3 - 6-month follow-up. Probably benign. Short-term follow-up suggested. Nodules with low lik elihood of becoming active cancer. Category 4A - 3-month follow-up and CT/PET if >8 mm in size. Suspicious finding. Findings which requi re additional testing. Category 4B - Findings which require additional testing and tissue sampling. Suspicious finding. Category 4X - Category 3 or 4 nodules with additional features or imaging findings that increases the suspicion of malignancy. Modifier S- Potentially clinically significant finding. (Non lung cancer) RADIATION DOSE DELIVERED: 43.63mGy.cm Total DLP 43.63mGy.cmTotal DLP DATA REPOSITORY: All CT scans at this facility are submitted to the National Radiology Data Registry (NRDR) Dose Index Registry (DIR) with the [employer] (ACR). RADIATION OPTIMIZATION: All CT scans at this facility use at least one of these dose optimization te chniques: automated exposure control; mA and/or kV adjustment per patient size (includes targeted exa ms where dose is matched to clinical indication); or iterative reconstruction.
== END 2024-07-06 01:23 ==
PROVIDERS: PCP Family Medicine; Visit Provider Family Medicine
DX: F17.210 Nicotine dependence, cigarettes, uncomplicated (principal); M19.012 Primary osteoarthritis, left shoulder; Z13.6 Encounter for screening for cardiovascular disorders; Z12.2 Encounter for screening for malignant neoplasm of respiratory organs; R91.1 Solitary pulmonary nodule
CPT/HCPCS: 71271; 76706; 73030

== ENCOUNTER 2024-09-16 10:08 | Outpatient (CLI) | payer MEDICARE, SELFPAY ==
--- NOTE | 2024-09-16 09:45 | DI.RAD_ITS ---
Exam(s) XR SHOULDER LT COMPLETE 2+V EXAM: XR SHOULDER LT COMPLETE 2+V CLINICAL HISTORY: eval pathology M25.512 Pain lt shoulder. TECHNIQUE: 2D digital imaging was performed. Three views. COMPARISON: No exams were available for comparison FINDINGS: BONES: No acute fracture is present. No bony destructive lesion is seen. Hardware in lower cervical spine. JOINTS: No dislocation present. Spurring at the AC joint and tip of the acromion. Glenohumeral join t space is maintained. There is mild spurring at the glenoid. SOFT TISSUE: There are calcifications adjacent to the greater tuberosity consistent with calcific ten dinosis. IMPRESSION: Mild degenerative change. Calcific tendinosis. DATA REPOSITORY: RADIATION DOSE DELIVERED:
== END 2024-09-16 10:28 ==
LOC: DI 10:08
PROVIDERS: PCP Family Medicine; Visit Provider Nurse Practitioner Family
DX: M25.512 Pain in left shoulder (principal); M75.32 Calcific tendinitis of left shoulder
CPT/HCPCS: 73030

== ENCOUNTER → 2024-09-30 13:36 | Outpatient (BNVA) | payer MEDICARE, SELFPAY | PROVIDERS: PCP Family Medicine; Referring Provider Family Medicine; Visit Provider Student in an Organized Health Care Education/Training Program | DX: M75.102 Unspecified rotator cuff tear or rupture of left shoulder, not specified as traumatic (principal); E11.9 Type 2 diabetes mellitus without complications; I10 Essential (primary) hypertension | CPT/HCPCS: 99214 ==

== ENCOUNTER 2024-10-23 00:43 | Outpatient (CLI) | payer MEDICARE, SELFPAY ==
--- NOTE | 2024-10-23 07:45 | DI.MRI_ITS ---
Exam(s) MR UPPER JOINT LT WO EXAM: MR UPPER JOINT LT WO CLINICAL HISTORY: ? RTC TEAR,lt shoulder pain,m25.512 TECHNIQUE: Multiplanar multisequence MRI of the shoulder was performed. COMPARISON: CR XR SHOULDER LT COMPLETE 2+V from 09/16/2024 FINDINGS: MARROW:There is no evidence of fracture, Hill-Sachs deformity, nor ominous osseous lesions. GLENOHUMERAL JOINT: There is some articular cartilage loss. No degenerative subarticular cysts. No obvious osteophytes. There is a tiny amount of increased fluid in the joint. No obvious loose ricardo s. ROTATOR CUFF MECHANISM: AC JOINT/ACROMIUM: There is significant degenerative changes in the AC joint. There is fluid signal within the joint and some bone edema on both sides the joint. There is no evidence of os acromiale. Supraspinatus: There is significant tendinitis signal in the supraspinatus. There is some articular side partial thickness tearing. There also appears to be an element of full-thickness tearing at the conjoined insertion site Infraspinatus: Insertional tendinitis signal and partial articular side surface tearing. There also foci of signal dropout at the insertional aspect upon the posterior greater tuberosity, this correspo nding to the soft tissue calcific densities seen on recent plain radiographs. Teres Minor: Intact. No evidence of tear nor muscle atrophy. Subscapularis/anterior cuff: There is significant tendinitis-tendinosis signal at the insertional asp ect anterior to the lesser tuberosity. BICEPS TENDON: There is fluid around the tendon within the intertubercular groove. There is attenuat ion of the intra-articular aspect of the tendon but without evidence of complete tear. Also no displ acement from the intertubercular groove position. LABRUM: Thin linear lucency in the posterior labrum noted on the axial images possibly representing t hin tear. Inferior labrum appears intact. No obvious anterior labral tear. QUADRILATERAL SPACE: No evidence of mass in the region of the axillary nerve and dorsal circumflex hu meral vessels. Visualized triceps muscle at this level appears unremarkable. IMPRESSION: 1. Supraspinatus tendinitis/tendinosis with partial thickness tearing and there also appears to be fu ll-thickness tear just above the foot pad insertional aspect. 2. Infraspinatus tendinitis and small calcific densities within the insertional aspect of this tendon just proximal to the greater tuberosity. No atrophy. 3. Tendinitis signal also seen in the anterior cuff-subscapularis. 4. Attenuated intra-articular aspect of the biceps tendon but without high-grade tear nor displaceme nt. There is some tenosynovitis noted with in the tendon sheath 5. Some linear oblique signal in seen in the posterior labrum which violates the articular surface a nd may represent thin tear of the posterior labrum. No evidence of paralabral cyst. 6. Mild-moderate degenerative changes in the glenohumeral joint. Also moderate degenerative changes in the AC joint. DATA REPOSITORY:
== END 2024-10-23 01:03 ==
LOC: DI 00:44
PROVIDERS: PCP Family Medicine; Visit Provider Student in an Organized Health Care Education/Training Program
DX: M75.122 Complete rotator cuff tear or rupture of left shoulder, not specified as traumatic (principal); M75.22 Bicipital tendinitis, left shoulder
CPT/HCPCS: 73221

== ENCOUNTER → 2024-10-27 14:10 | Outpatient (BNVA) | payer MEDICARE, SELFPAY | PROVIDERS: PCP Family Medicine; Referring Provider Family Medicine; Visit Provider Student in an Organized Health Care Education/Training Program | DX: M75.102 Unspecified rotator cuff tear or rupture of left shoulder, not specified as traumatic (principal) | CPT/HCPCS: 99214; 20610; J1010 ==

== ENCOUNTER 2024-12-22 03:50 | Outpatient (CLI) | payer MEDICARE, SELFPAY ==
[2024-12-22 09:01] LABS: Hemoglobin A1C 5.4 % (<5.7)
[2024-12-22 09:07] LABS: AST 21 U/L (15-37); Albumin 3.9 g/dL (3.4-5.0); Alkaline Phosphatase 62 U/L (46-116); Anion Gap 9.1 mmol/L (3-11); BUN 21 mg/dL (7-18); Bilirubin, Total 0.6 mg/dL (0.2-1.0); CO2 26.9 mmol/L (21.0-32.0); Calcium 9.4 mg/dL (8.5-10.1); Calculated LDL 105 mg/dL (<100); Chloride 105 mmol/L (98-107); Cholesterol 182 mg/dL (<200); Estimated GFR 94.19 (mL/min/1.73m2); Glucose 99 mg/dL (74-106); HDL Cholesterol 40 mg/dL (>or=40); Potassium 3.7 mmol/L (3.5-5.1); Sodium 141 mmol/L (136-145); Total Protein 7.3 g/dL (6.4-8.2); Triglyceride 188 mg/dL (<150)
[2024-12-22 09:16] LABS: ALT < 6 U/L (16-63)
[2024-12-23 11:21] LABS: Hepatitis C Ab w Rflx HCV PCR Negative (Negative)
== END 2024-12-22 03:51 | disposition home or self-care (01) ==
LOC: LBO 03:50
PROVIDERS: PCP Family Medicine; Visit Provider Family Medicine
DX: Z11.59 Encounter for screening for other viral diseases (principal); E11.9 Type 2 diabetes mellitus without complications; I10 Essential (primary) hypertension
CPT/HCPCS: 36415; 80053; 80061; 86803; 83036

== ENCOUNTER → 2025-01-26 09:40 | Outpatient (BNVA) | payer MEDICARE, SELFPAY | PROVIDERS: PCP Family Medicine; Referring Provider Family Medicine; Visit Provider Student in an Organized Health Care Education/Training Program | DX: M75.102 Unspecified rotator cuff tear or rupture of left shoulder, not specified as traumatic (principal) | CPT/HCPCS: 99213; 20610; J1010 ==